=== PATIENT | female | born 1990 | race Two or more races ===

== ENCOUNTER 2017-01-29 23:10 | Emergency (ER) | payer SELFPAY ==
[2017-01-30 01:52] LABS: ABSOLUTE EOSINOPHILS # (AUTO) 0.2 10^3/uL (0.0-0.6); ABSOLUTE LYMPHOCYTES (AUTO) 2.8 10^3/uL (0.5-4.7); ABSOLUTE MONOCYTES (AUTO) 0.8 10^3/uL (0.1-1.4); ABSOLUTE NEUT (AUTO) 7.1 10^3/uL (1.7-8.2); BASOPHILS % (AUTO) 0.2 % (0-2); EOSINOPHILS % (AUTO) 2.2 % (0-6); HEMATOCRIT 41.4 % (36.0-47.0); HEMOGLOBIN 13.9 g/dL (12.0-15.5); HGB HCT DIFFERENCE 0.3; LYMPHOCYTES % (AUTO) 25.2 % (13-45); MEAN CORPUSCULAR HEMOGLOBIN 32.2 pg (27.0-33.4); MEAN CORPUSCULAR HGB CONC 33.6 g/dL (32.0-36.0); MEAN CORPUSCULAR VOLUME 96 fl (80-97); MONOCYTES % (AUTO) 7.5 % (3-13); RED BLOOD COUNT 4.32 10^6/uL (3.72-5.28); RED CELL DISTRIBUTION WIDTH 13.2 % (11.5-14.0); SEGMENTED NEUTROPHILS % (AUTO) 64.9 % (42-78)
[2017-01-30 02:09] LABS: ALANINE AMINOTRANSFERASE 34 U/L (9-52); ALBUMIN 4.5 g/dL (3.5-5.0); ALKALINE PHOSPHATASE 58 U/L (38-126); ANION GAP 12 (5-19); ASPARTATE AMINO TRANSFERASE 22 U/L (14-36); BILIRUBIN,DIRECT 0.2 mg/dL (0.0-0.4); BILIRUBIN,TOTAL 0.5 mg/dL (0.2-1.3); BLOOD UREA NITROGEN 11 mg/dL (7-20); CALCIUM 9.6 mg/dL (8.4-10.2); CARBON DIOXIDE 26 mmol/L (22-30); CHLORIDE 103 mmol/L (98-107); CREATININE RESULT 0.68 mg/dL (0.52-1.25); GLUCOSE 95 mg/dL (75-110); LIPASE 105.3 U/L (23-300); POTASSIUM 3.9 mmol/L (3.6-5.0); SODIUM 140.5 mmol/L (137-145); TOTAL PROTEIN 7.5 g/dL (6.3-8.2)
[2017-01-30 02:13] LABS: APPEARANCE,URINE CLOUDY; BILIRUBIN,URINE NEGATIVE (NEGATIVE); GLUCOSE, URINE NEGATIVE (NEGATIVE); KETONES,URINE NEGATIVE (NEGATIVE); LEUKOCYTE ESTERASE,URINE MODERATE (NEGATIVE); NITRITE,URINE NEGATIVE (NEGATIVE); PROTEIN,URINE 100 mg/dL (NEGATIVE); URINE SPECIFIC GRAVITY 1.014; UROBILINOGEN,URINE NEGATIVE mg/dL (<2.0)
--- NOTE | 2017-01-30 03:06 | ER Document Report ---
ED Medical Screen (RME) - General Mode of Arrival: Ambulatory Information source: Patient TRAVEL OUTSIDE OF THE [place] IN LAST 30 DAYS: No <MALA JUDD - Last Filed: 01/30/17 03:07> <MICHELLE NICOLAS - Last Filed: 01/30/17 03:37> - General Chief Complaint: Vaginal Bleeding Stated Complaint: VAGINAL BLEEDING Time Seen by Provider: 01/30/17 03:01 Notes: Patient is a 26 year old female presenting to the ED for vaginal bleeding. Patient started having spotting and then dark, heavy, red clots. Patient is unsure if she was . LMP 2.5 weeks ago. Patient denies any history of or taking a pregnany test. Patient also has an ovarian cyst but states there is not much pain related to her cyst. Patient denies any history of endometriosis. Patient states she is having painful intercourse and pain with inserting a tampon. Patient denies any history of Gonorrhea but states she had chlamydia once. Patient also states she has been having headaches, nausea, and has been extremely tired lately. Patient has not seen an OBGYN yet since she just moved here. Patient has no known drug allergies. (MALA JUDD) - Related Data Allergies/Adverse Reactions: No Known Allergies Allergy (Verified 01/25/12 16:27) Past Medical History Renal/ Medical History: Denies: Hx Peritoneal Dialysis Past Surgical History: Reports: Hx Gynecologic Surgery - cerclage - Immunizations Hx Diphtheria, Pertussis, Tetanus Vaccination: No <MALA JUDD - Last Filed: 01/30/17 03:07> Physical Exam <MALA JUDD - Last Filed: 01/30/17 03:07> <MICHELLE NICOLAS - Last Filed: 01/30/17 03:37> - Vital signs Vitals: Temp Pulse Resp BP Pulse Ox 97.9 F 88 18 123/77 97 01/29/17 23:14 01/29/17 23:14 01/29/17 23:14 01/29/17 23:14 01/29/17 23:14 - Notes Notes: General: Alert, oriented, no acute distress. Abdomen: Non-tender, soft, and non-distended, normal bowel sounds. Heart: Regular rate and rhythm. Lungs: Clear. No Respiratory distress. (MALA JUDD) Course - Laboratory Result Diagrams: 01/30/17 01:26 01/30/17 01:26 <MALA JUDD - Last Filed: 01/30/17 03:07> - Laboratory Result Diagrams: 01/30/17 01:26 01/30/17 01:26 <MICHELLE NICOLAS - Last Filed: 01/30/17 03:37> - Re-evaluation Re-evalutation: 01/30/17 03:35 patient rme with vaginal bleeding for two weeks since lnmp. not nor lightheaded positive history of ovarian cyst , painful intercourse but nop discharge, positive history of chlamydia (MICHELLE NICOLAS) - Vital Signs Vital signs: Temp Pulse Resp BP Pulse Ox 97.9 F 88 18 123/77 97 01/29/17 23:14 01/29/17 23:14 01/29/17 23:14 01/29/17 23:14 01/29/17 23:14 - Laboratory Laboratory results interpreted by me: 01/30/17 01/30/17 01:23 01:26 WBC 11.0 H Urine Protein 100 H Urine Blood LARGE H Ur Leukocyte Esterase MODERATE H Scribe Documentation - Scribe Written by Sita:: Sita Stevens 01/30/17 3:11 acting as scribe for :: Puneet <MALA JUDD - Last Filed: 01/30/17 03:07>
[2017-01-30] MEDS ORDERED: KETOROLAC TROMETHAMINE 60 MG/2 ML SDV IM ONE (08:08)
--- NOTE | 2017-01-30 08:15 | RADIOLOGY REPORT (SQ) ---
EXAM DESCRIPTION: U/S NON OB PEL TV W/DOPPLER COMPLETED DATE/TIME: 01/30/2017 7:59 am REASON FOR STUDY: pain with sex COMPARISON: None. TECHNIQUE: Dynamic and static grayscale images acquired of the pelvis via transvaginal approach and recorded on PACS. Additional selected color Doppler and spectral images recorded. LIMITATIONS: None. FINDINGS: UTERUS: Contour normal. No mass. ENDOMETRIAL STRIPE: No focal or generalized thickening. No masses. CERVIX: No nabothian cysts. RIGHT OVARY: No abnormal masses. 1.7 cm hypoechoic abnormality likely hemorrhagic cyst. RIGHT OVARY DOPPLER: Normal arterial vascular flow without evidence for torsion. LEFT OVARY: No abnormal masses. LEFT OVARY DOPPLER: Normal arterial vascular flow without evidence for torsion. FREE FLUID: Minimal free fluid in the posterior cul-de-sac. OTHER: No other significant finding. MEASUREMENTS: UTERUS: 8.9 x 4.4 x 3.8 cm ENDOMETRIAL STRIPE: 5.9 mm RIGHT OVARY: 3.7 x 2.3 x 2.1 cm LEFT OVARY: 3.5 x 2.4 cm IMPRESSION: 1. 1.7 cm hypoechoic abnormality in the right ovary likely hemorrhagic cyst. TECHNICAL DOCUMENTATION: JOB ID: [id number] [employer]- All Rights Reserved
[2017-01-30] MEDS ORDERED: PHENAZOPYRIDINE HCL 200 MG TABLET PO ONE (10:17)
[2017-01-30 10:42] LABS: APPEARANCE,URINE CLEAR; BILIRUBIN,URINE NEGATIVE (NEGATIVE); GLUCOSE, URINE NEGATIVE (NEGATIVE); KETONES,URINE NEGATIVE (NEGATIVE); LEUKOCYTE ESTERASE,URINE SMALL (NEGATIVE); NITRITE,URINE NEGATIVE (NEGATIVE); PROTEIN,URINE NEGATIVE (NEGATIVE); URINE SPECIFIC GRAVITY 1.016; UROBILINOGEN,URINE NEGATIVE mg/dL (<2.0)
[2017-01-30] MEDS ORDERED: NITROFURANTOIN MONOHYD/M-CRYST 100 MG CAPSULE PO ONE (11:54)
[2017-01-30 12:06] LABS: CHLAM PCR NOT DETECTED (NOT DETECT)
--- NOTE | 2017-01-30 12:09 | ER Document Report ---
ED General - General Chief Complaint: Vaginal Bleeding Stated Complaint: VAGINAL BLEEDING Time Seen by Provider: 01/30/17 03:01 Mode of Arrival: Ambulatory TRAVEL OUTSIDE OF THE [place] IN LAST 30 DAYS: No - HPI Patient complains to provider of: Vaginal bleeding lower abdominal pain Notes: Patient coming in for lower pelvic pain vaginal bleeding patient states that she was on it. Then started having heavier flow the last 24 hours. Patient denies any recent sexual intercourse however states that when she does have sex she does have pain. Patient is unaware of all of her status. Patient also states having some dysuria. Denies fevers chills nausea vomiting diarrhea - Related Data Allergies/Adverse Reactions: No Known Allergies Allergy (Verified 01/25/12 16:27) Past Medical History - General Information source: Patient - Social History Smoking Status: Unknown if Ever Smoked Family History: Reviewed & Not Pertinent Patient has suicidal ideation: No Patient has homicidal ideation: No Renal/ Medical History: Denies: Hx Peritoneal Dialysis Past Surgical History: Reports: Hx Gynecologic Surgery - cerclage - Immunizations Hx Diphtheria, Pertussis, Tetanus Vaccination: No Review of Systems - Review of Systems Constitutional: No symptoms reported EENT: No symptoms reported Cardiovascular: No symptoms reported Respiratory: No symptoms reported Gastrointestinal: Abdominal pain Genitourinary: No symptoms reported Female Genitourinary: No symptoms reported Musculoskeletal: No symptoms reported Skin: No symptoms reported Hematologic/Lymphatic: No symptoms reported Neurological/Psychological: No symptoms reported -: Yes All other systems reviewed and negative Physical Exam - Vital signs Vitals: Temp Pulse Resp BP Pulse Ox 97.9 F 88 18 123/77 97 01/29/17 23:14 01/29/17 23:14 01/29/17 23:14 01/29/17 23:14 01/29/17 23:14 Interpretation: Normal - General General appearance: Appears well, Alert - HEENT Head: Normocephalic, Atraumatic Eyes: Normal Pupils: PERRL - Respiratory Respiratory status: No respiratory distress Chest status: Nontender Breath sounds: Normal Chest palpation: Normal - Cardiovascular Rhythm: Regular Heart sounds: Normal auscultation Murmur: No - Abdominal Inspection: Normal Distension: No distension Bowel sounds: Normal Tenderness: Nontender Organomegaly: No organomegaly - Genitourinary External exam: Normal Vaginal bleeding: Moderate - Back Back: Normal, Nontender - Extremities General upper extremity: Normal inspection, Nontender, Normal color, Normal ROM , Normal temperature General lower extremity: Normal inspection, Nontender, Normal color, Normal ROM , Normal temperature, Normal weight bearing. No: Austin's sign - Neurological Neuro grossly intact: Yes Cognition: Normal Orientation: AAOx4 [place] Coma Scale Eye Opening: Spontaneous [place] Coma Scale Verbal: Oriented [place] Coma Scale Motor: Obeys Commands [place] Coma Scale Total: 15 Speech: Normal Motor strength normal: LUE, RUE, LLE, RLE Sensory: Normal - Psychological Associated symptoms: Normal affect, Normal mood - Skin Skin Temperature: Warm Skin Moisture: Dry Skin Color: Normal Course - Re-evaluation Re-evalutation: 01/30/17 13:08 Ultrasound shows right ovarian cyst straight cath urinalysis shows positive bacteria will treat with Macrobid urine sent for culture. Otherwise lab work does not show any signs of anemia or sniffing infection. Patient was discharged home follow-up with her primary care physician and RN LACTATION. - Vital Signs Vital signs: Temp Pulse Resp BP Pulse Ox 97.6 F 77 16 109/60 96 01/30/17 12:41 01/30/17 12:41 01/30/17 12:41 01/30/17 12:41 01/30/17 12:41 - Laboratory Result Diagrams: 01/30/17 01:26 01/30/17 01:26 Laboratory results interpreted by me: 01/30/17 01/30/17 01/30/17 01:23 01:26 10:26 WBC 11.0 H Urine Protein 100 H Urine Blood LARGE H Ur Leukocyte Esterase MODERATE H SMALL H Discharge - Discharge Clinical Impression: Vaginal bleeding, Ovarian cyst UTI (urinary tract infection) Qualifiers: Urinary tract infection type: site unspecified Hematuria presence: without hematuria Qualified Code(s): N39.0 - Urinary tract infection, site not specified Condition: Good Disposition: HOME, SELF-CARE Instructions: Urinary Tract Infection ([facility]), Nitrofurantoin ([facility]), Ovarian Cyst ([facility]), Vaginal Bleeding ([facility]), Dysfunctional Uterine Bleeding ([facility]) Additional Instructions: Follow-up with your primary care physician. Your workup today shows a right ovarian cyst urinary tract infection is also present within your urinalysis. Vaginal bleeding more likely due to dysfunctional vaginal bleeding or prolonged menstrual cycle. I would highly recommend follow-up with your RN LACTATION. Take medication as prescribed return to ER symptoms worsen Prescriptions: Dicyclomine HCl [Bentyl 20 mg Tablet] 20 mg PO QID #20 tablet Nitrofurantoin Monohyd/M-Cryst [Macrobid 100 mg Capsule] 100 mg PO BID #14 capsule Forms: Return to Work
[2017-01-30 12:42] VITALS: BP 109/60
== END 2017-01-30 12:41 | disposition home or self-care (01) ==
LOC: ER 23:10
DX: N83.209 Unspecified ovarian cyst, unspecified side (principal); N93.8 Other specified abnormal uterine and vaginal bleeding; N39.0 Urinary tract infection, site not specified; R10.2 Pelvic and perineal pain
CPT/HCPCS: 99284; 96372; 51701; 36415; 87210; 83690; 85025; 81025; 80053; 81001; 87491; 87591; 76830; 93976; J1885; J3490